=== PATIENT | female | born 1980 | race African-American/Black ===

== ENCOUNTER → 2017-03-16 | Outpatient (CLI) | payer BC ==
--- NOTE | 2017-03-16 16:45 | KCIC ---
PROCEDURE MR of the right knee HISTORY Right knee pain after working out 2 weeks ago. Pain medial and lateral. TECHNIQUE Routine multiplanar sequences are obtained. COMPARISON None FINDINGS No evidence of medial meniscal tear. No evidence of lateral meniscal tear. Anterior and posterior cruciate ligaments are intact. Mild scarring of the proximal medial collateral ligament. No acute rupture. Iliotibial band unremarkable. Fibular collateral ligament demonstrates mild thickening and signal at the femoral attachment compatible with a sprain or more chronic degeneration. No rupture or discontinuity. Biceps femoris tendon is intact. Popliteus tendon is intact. Extensor mechanism is intact. Moderate joint effusion. No evidence of osteochondral loose body. Mild heterogeneous signal within articular cartilage of the lateral joint compartment compatible with mild chondromalacia. Moderate chondromalacia at the patellofemoral joint. No bone lesion or acute fracture. Small Breaux cyst. Mild generalized soft tissue edema. Lateral patellar tilt and subluxation identified. IMPRESSION 1. Moderate patellofemoral joint chondromalacia, mild lateral compartment chondromalacia. Findings are compatible with primary osteoarthritis. 2. Lateral patellar tilt and subluxation, but that may be due to the joint effusion. 3. No evidence of meniscal tear. 4. Sprain versus more chronic degeneration of the proximal fibular collateral ligament. No rupture or laxity however. Electronically signed by: Christiano Sotomayor MD (March 16, 2017 16:43:54)
== END | disposition home or self-care (01) ==
LOC: KCIC MRI 16:00
PROVIDERS: ATTEND Physician Assistant Surgical
DX: M25.561 Pain in right knee (principal)
CPT/HCPCS: 73721